=== PATIENT | female | born 1985 | race Two or more races ===

== ENCOUNTER → 2021-07-20 | Outpatient (CLI) | payer OTHER ==
--- NOTE | 2021-07-21 15:57 | NM ---
EXAMINATION TYPE: NM thyroid image w uptake DATE OF EXAM: 07/21/2021 COMPARISON: NONE HISTORY: Abnormal thyroid function studies TECHNIQUE: Thyroid iodine uptake is calculated and images performed after the oral administration of 311 uCi 1-123 Capsule. FINDINGS: There is normal distribution of activity throughout the gland. The 4 hour iodine uptake is calculated at 33% (normal range 8-14%). The 24-hour iodine uptake is calculated at 61% (normal range 15-35%). IMPRESSION: 1. Findings compatible with hyperthyroidism. 2. There is marked heterogeneity with areas of reduced uptake and focal increased uptake bilaterally. Suspect a cold nodule lower pole right thyroid. Possible hot nodules within the mid right thyroid an d within the mid left thyroid. Degree autonomously functioning nodule in the differential diagnosis R ecommend correlation with ultrasound to assess for thyroiditis versus multinodular thyroid.
== END | disposition home or self-care (01) ==
LOC: RADNMMAIN 08:46
PROVIDERS: ATTEND Family Medicine
DX: E04.1 Nontoxic single thyroid nodule (principal)
CPT/HCPCS: 78014; A9516